=== PATIENT | male | born 1975 | race Caucasian/White ===

== ENCOUNTER → 2020-07-16 | Outpatient (CLI) | payer BC ==
--- NOTE | 2020-07-16 14:27 | 2DMMODE ---
[place] [address] 2 D/M-MODE ECHOCARDIOGRAM Name: AUGUSTINE TOBIAS Room: [facility]#: [id number] Admission: 07/16/20 Attend Phys: Alex Baird, Discharge: Date of : 79 Date of Service: 07/16/20 1427 Report #: [id number] THIS REPORT FOR: cc: Javed Forrester,Javed Garza,Jace Saunders MD [facility] ~ APPROVED REPORT Study performed: 07/16/2020 12:53:49 EXAM: Comprehensive 2D, Doppler, and color-flow Echocardiogram Patient Location: Out-Patient BSA: 2.47 HR: 57 bpm BP: 120/80 mmHg Other Information Study Quality: Good Indications Dyspnea Chest Pain 2D Dimensions IVSd: 11.63 (7-11mm) LVOT Diam: 22.49 (18-24mm) LVDd: 47.25 mm PWd: 10.49 (7-11mm) Ascending Ao: 32.11 (22-36mm) LVDs: 33.87 (25-40mm) Aortic Root: 31.47 mm Volumes Left Atrial Volume (Systole) LA ESV Index: 17.50 mL/m2 Aortic Valve AoV Peak Jaswinder.: 0.98 m/s AO Peak Gr.: 3.82 mmHg LVOT Max P.13 mmHg AO Mean Gr.: 1.80 mmHg LVOT Mean P.29 mmHg LVOT Max V: 0.88 m/s AO V2 VTI: 16.55 cm LVOT Mean V: 0.51 m/s GARY (VTI): 4.03 cm2 LVOT V1 VTI: 16.79 [place] [address] 2 D/M-MODE ECHOCARDIOGRAM Name: AUGUSTINE TOBIAS Room: [facility]#: [id number] Admission: 07/16/20 Attend Phys: Alex Baird, Discharge: Date of : 79 Date of Service: 07/16/20 1427 Report #: [id number] E/A Ratio: 1.59 MV Decel. Time: 203.05 ms MV E Max Jaswinder.: 0.59 m/s MV PHT: 58.88 ms MVA (PHT): 3.74 cm2 TDI E/Lateral E': 3.69 E/Medial E': 4.92 Medial E' Jaswinder.: 0.12 m/s Lateral E' Jaswinder.: 0.16 m/s Pulmonary Valve PV Peak Jaswinder.: 0.85 m/s PV Peak Gr.: 2.89 mmHg Tricuspid Valve RAP Estimate: 5.00 mmHg TR Peak Gr.: 16.20 mmHg RVSP: 21.20 mmHg PA Pressure: 21.20 mmHg Left Ventricle The left ventricle is normal size. There is normal LV segmental wall motion. There is normal left ventricular wall thickness. Left ventricular systolic function is borderline. LVEF is 50-55%. The left ventricular diastolic function is normal. Right Ventricle The right ventricle is normal size. The right ventricular systolic function is normal. Atria The left atrium size is normal. The right atrium size is normal. Aortic Valve The aortic valve is normal in structure. No aortic regurgitation is present. There is no aortic valvular stenosis. Mitral Valve The mitral valve is normal in structure. There is no mitral valve regurgitation noted. No evidence of mitral valve stenosis. Tricuspid Valve The tricuspid valve is normal in structure. Mild tricuspid regurgitation[place] [address] 2 D/M-MODE ECHOCARDIOGRAM Name: AUGUSTINE TOBIAS [id number] Admission: 07/16/20 Attend Phys: Alex Baird, Discharge: Date of : 79 Date of Service: 07/16/20 1427 Report #: [id number] The pulmonary valve is normal in structure. There is no pulmonic valvular regurgitation. Great Vessels The aortic root is normal in size. IVC is normal in size and collapses >50% with inspiration. Pericardium There is no pericardial effusion. <Conclusion> Left ventricular systolic function is borderline. LVEF is 50-55%. <ELECTRONICALLY SIGNED> By: Jace Lorenzo MD, FACC 07/16/20 142 26 26 Jace Lorenzo MD, FACC /INF
--- NOTE | 2020-07-17 12:13 | CARDNUC ---
[place] [address] CARDIAC NUCLEAR IMAGING REPORT Name: AUGUSTINE TOBIAS Room: [facility]#: [id number] Admission: 07/16/20 Attend Phys: Alex Baird, Discharge: Date of : 79 Date of Service: 07/17/20 1213 Report #: [id number] THIS REPORT FOR: cc: Javed Forrester Vincent R. DO Liston, Michael J. MD [facility] ~ APPROVED REPORT Study performed: 07/16/2020 14:00:00 Indication: Chest pain, CARRANZA, RBBB. Patient Location: Out-Patient Stress Tech: Xiomara Barros Stress Nurse: Mari Sawyer RN Ht: 6 ft 6 in Wt: 247 lbs BSA: 2.47 m2 BMI: 28.54 Medical History Medical History: Angina, CARRANZA, RBBB, positional dizziness/lightheadedness, current smoker. Medications: No cardiac medications Allergies: Tetracycline. Cardiac Risk Factors: Chest pain, RBBB, CARRANZA, Current Smoker. Previous Cardiac Procedures: None Pretest Chest Pain Characteristics: No chest pain Exercise History: Physically active Physical Disabilities: None Meds Held (24 hrs): None Resting Data Rest SPECT myocardial perfusion imaging was performed in supine position 30 minutes following the intravenous injection of 10.7 mCi of Tc-99m Sestamibi. Time of rest injection: 14:15 The images were gated to evaluate regional wall motion and calculate left ventricular ejection fraction. Administration Route: IV Administration Site: Right Hand Exercise Stress At peak stress, the patient was injected intravenously with 31.0mCi of Tc-99m Sestamibi. Time of stress injection: 16:00 [place] [address] CARDIAC NUCLEAR IMAGING REPORT Name: AUGUSTINE TOBIAS Room: [facility]#: [id number] Admission: 07/16/20 Attend Phys: Alex Baird, Discharge: Date of : 79 Date of Service: 07/17/20 1213 Report #: [id number] Administration Route: IV Administration Site: Right Hand Heart Rate at time of stress injection: 188 bpm. Patient continued to exercise for 1 minute(s). Gated Stress SPECT was performed 30 minutes after stress injection. The images were gated to evaluate regional wall motion and calculate left ventricular ejection fraction. Prone imaging was performed. Stress Test Details Stress Test: Exercise stress testing was performed using a Pj protocol. HR Max Heart Rate (APMHR): 178 bpm Resting HR: 62 bpm Target HR (85% APMHR): 151 bpm Max HR Achieved: 188 bpm % of APMHR: 105 Recovery HR: 110 bpm BP Resting BP: 108/77 mmHg Max BP: 234/131 mmHg Recovery BP: 110/70 mmHg ECG Resting ECG: Sinus Rhythm, RBBB Stress ECG: Sinus Tachycardia, RBBB ST Change: None Arrhythmia: None Recovery ECG: Sinus Tachycardia, RBBB Recovery ST Change: None Recovery Arrhythmia: None Clinical Reason for Termination: Completed protocol, Maximal effort, Target HR reached, Patient Request. Stress Symptoms: Dyspnea, Chest tightness on inhalation 310. Exercise duration: 14 min 08 sec Exercise capacity: 14.86 METs Overall Exercise Capacity for Age: Superior The patient exhibited excellent exercise tolerance. The patient did note mild chest tightness with exercise. Nurse Comments A 44 year old male presented for a treadmill Nuclear Stress Test r/[place] [address] CARDIAC NUCLEAR IMAGING REPORT Name: MICHELINEAUGUSTINE Room: [facility]#: [id number] Admission: 07/16/20 Attend Phys: Alex Baird, Discharge: Date of : 79 Date of Service: 07/17/20 1213 Report #: [id number] chest pain, CARRANZA, RBBB. Treadmill tolerated to stage 5. Recovery unremarkable with some continued tachycardia, asymptomatic. Patient escorted to Nuclear Medicine for imaging. Patient was stable and stated he felt good at that time. Stress ECG Conclusion The baseline twelve-lead EKG shows sinus rhythm with right bundle branch block. EKGs obtained during and post exercise show sinus rhythm and sinus tachycardia with no significant ST segment changes when compared to baseline. There were no significant stress-induced arrhythmias. Study Quality Study: Good Artifact: Mild Diaphragmatic artifact Study Data At rest, the left ventricular ejection fraction was 52%.. Post stress, the left ventricular ejection was 51%.. TID = 0.87. Perfusion Perfusion images obtained at rest show mild photopenia in the inferior wall that resolves partially with post-rest imaging. Review of the raw data suggests diaphragmatic attenuation artifact. The inferior wall abnormality resolves completely with post-rest imaging. Post stress imaging in the prone position shows uniform uptake of the radioisotope throughout the myocardium. Wall Motion Global LV systolic function is preserved. There is inferoseptal wall motion abnormality possibly consistent with underlying bundle branch block. Nuclear Conclusion ECG Findings: negative for ischemia Clinical Findings: equivocal Nuclear Findings: negative for ischemia Exercise Capacity: Excellent Left Ventricular Function: Preserved Risk Study: low Perfusion study show no defect to suggest infarct or ischemia. Left ventricular systolic function appears preserved. This is a low risk study. <Conclusion> [place] [address] CARDIAC NUCLEAR IMAGING REPORT Name: AUGUSTINE TOBIAS Room: [facility]#: [id number] Admission: 07/16/20 Attend Phys: Alex Baird, Discharge: Date of : 79 Date of Service: 07/17/20 1213 Report #: [id number] The baseline twelve-lead EKG shows sinus rhythm with right bundle branch block. EKGs obtained during and post exercise show sinus rhythm and sinus tachycardia with no significant ST segment changes when compared to baseline. There were no significant stress-induced arrhythmias. <ELECTRONICALLY SIGNED> By: Alex Baird MD, FACC 07/17/201212 12 12 Alex Baird MD, FACC /INF
== END ==
LOC: M.CRD 07-05 08:38
PROVIDERS: ATTEND Internal Medicine Cardiovascular Disease
DX: I07.1 Rheumatic tricuspid insufficiency (principal); I45.10 Unspecified right bundle-branch block; Z72.0 Tobacco use